=== PATIENT | male | born 1975 | race Caucasian/White ===

== ENCOUNTER 2023-08-22 08:12 | Emergency (ER) | payer BC, SELFPAY ==
[2023-08-22 08:20] VITALS: BP 129/83
[2023-08-22 08:26] VITALS: BMI 23.0
[2023-08-22 08:52] LABS: % Basophils 0.7 % (0-2); % Eosinophils 1.7 % (0-6); % Immature Granulocytes 0.2 % (0-0.5); % Lymphocytes 33.3 % (20.5-51.1); % Monocytes 5.5 % (1.7-9.3); % Neutrophils 58.6 % (42.2-75.2); Absolute Eosinophils 0.1 10^3/uL (0-0.7); Absolute Lymphocytes 1.9 10^3/uL (1.2-3.4); Absolute Monocytes 0.3 10^3/uL (0.1-0.6); Absolute Neutrophils 3.4 10^3/uL (1.4-6.5); Hematocrit 47.3 % (39.0-52.0); Hemoglobin 16.6 g/dL (13.0-18.0); Mean Corp Hgb Conc. 35.1 g/dL (33.0-37.0); Mean Corpuscular Volume 85.5 fL (80.0-94.0); Mean Platelet Volume 10.7 fL (7.4-10.4); Nucleated Red Blood Cells % 0 % (-); Platelet Count 205 10^3/uL (130-400); Red Blood Cell Count 5.53 10^6/uL (4.70-6.10); White Blood Cell Count 5.8 10^3/uL (4.8-10.8)
--- NOTE | 2023-08-22 08:59 | ED.GENMED ---
History of Present Illness
General
Chief Complaint: Heart Rate Problem
Source: patient
Exam Limitations: none
Time Seen by Provider: 08/22/23 08:40
Nursing documentation reviewed up to this point in time: agreed with
Travel History
Have you had any contact with someone who has COVID-19?: No
Do you have any symptoms of coronavirus? Fever > 100 degrees, chills, cough, shortness of breath, sore throat, loss of taste or smell, muscle aches, or headache?: No
History of Present Illness
History of Present Illness:
48-year-old male with no reported chronic medical issues who presents to the emergency room with his for evaluation of palpitations. Patient reports onset of symptoms this morning after getting out of bed around 5:15 AM�he says he initially
felt racing heart that lasted for about an hour but then seemed to improve a bit. He says when he was eating breakfast he felt symptoms returned and he checked his heart rate using his 's Apple Watch that was irregular which prompted him to
come to the emergency room. He does not have any chest pain. Denies any dizziness or lightheadedness. Denies any shortness of breath. He says he has not had similar symptoms in the past although he has had intermittent brief palpitations or
episodes of fatigue over the past few weeks. He does have a family history of A-fib in multiple family members. He has never seen a water softener servicer.
Past History
Past History
ED Past Medical History: None
ED Past Surgical History: Orthopedic
Social History
Tobacco: Non-smoker
Review of Systems
Review of Systems
All Other Systems: ROS reviewed and negative except as documented in HPI and ROS
Constitutional: Denies fever, fatigue or chills
Respiratory: Denies cough or trouble breathing
Cardiac: Reports palpitations; Denies chest pain, diaphoresis or syncope
ABD/GI: Denies abdominal pain, nausea, vomiting or diarrhea
: Denies flank pain
Musculoskeletal: Denies neck pain or back pain
Neurological: Denies headache, weakness or numbness
Phy Exam
Physical Exam
Physical Exam:
General: Awake, alert, oriented x3; no acute distress
Head: Normocephalic, atraumatic
Eyes: Conjunctiva normal
Throat: Airway intact, handling secretions
Neck: Trachea midline, supple without meningismus
Lungs: Clear to auscultation bilaterally, no wheezing, rales, rhonchi
Heart: Tachycardia with irregularly irregular rhythm, no murmurs, gallops, or rubs
Abd: Soft, non distended, nontender
Neuro: Cranial nerves grossly intact, speech fluid
Skin: no rash
Extremities: No edema in extremities, equal pulses in all extremities
Scores
[id number] Score for Afib Stroke Risk
Age in Years (65=0, 65-74=1, >/=75=2): <65
Sex (Female=+1): Male
Congestive Heart Failure History (Yes=+1): No
Hypertension History (Yes=+1): No
Stroke/TIA/Thromboembolism History (Yes=+2): No
Vascular Disease History (Yes=+1): No
Diabetes Mellitus (Yes=+1): No
Score: 0
Anticoagulation Recommendations: Anticoagulation not indicated (as validated in nonvalvular afib). Consider anticoagulation irrespective of score in patients with HCM
Heart Failure Risk
Heart Failure Risk Score: Not Applicable
Heart Score for Chest Pain Patients
STEMI patient?: Not applicable
Withdrawal Assessment of Alcohol
Withdrawal Assessment Completed?: Not applicable
Course
Orders/Labs/Results
Orders:
Orders
08/22/23 08:13
EKG [Electrocardiogram (*1)] Urgent
Reason for Study: Tachycardia
EKG- Treatment ONCE
08/22/23 08:37
Complete Blood Count/With Diff Urgent
Comprehensive Metabolic Panel Urgent
08/22/23 08:57
Diltiazem 125 mg/125 ml Nss [Cardizem] 125 mg in 125 ml IV NOW
Initial dose in mg/hr, then titrate:: 5
Titrate to keep:: Heart rate 80-100 bpm
Titrate by mg/hr:: 5 mg/hr
Frequency of titrations (minutes):: 15
Maximum dose in mg/hr:: 15
Diltiazem HCl [Cardizem] 10 mg IV NOW STA
08/22/23 08:58
0.9% Sodium Chloride 500 ml [Nss] 500 ml IV BOLUS
08/22/23 09:45
ECG [Electrocardiogram (*1)] Urgent
Reason for Study: Palpitations
08/22/23 09:46
EKG- Treatment ONCE
08/22/23 09:58
Aspirin Chewable [Low Strength Aspirin] 81 mg PO NOW STA
Metoprolol Xl [Toprol Xl] 12.5 mg PO NOW STA
Abnormal Lab Results
08/22/23
08:37
MPV 10.7 H fL
(7.4-10.4)
08/22/23 08:37
08/22/23 08:37
Vital Signs
Initial and Last Documented VS:
Initial Vital Signs
Temp Pulse Resp BP Pulse Ox
37.6 C 85 16 129/83 97
08/22/23 08:20 08/22/23 08:20 08/22/23 08:20 08/22/23 08:20 08/22/23 08:20
Last Documented Vital Signs
Temp Pulse Resp BP Pulse Ox
37.6 C 79 13 132/91 98
08/22/23 08:20 08/22/23 09:45 08/22/23 09:45 08/22/23 09:32 08/22/23 09:45
MDM/Problems Addressed
Differential Diagnosis Includes:
Atrial fibrillation, atrial flutter, SVT, PACs/PVCs
MDM/Problems Addressed:
48-year-old male who presents to the emergency room for evaluation of palpitations this morning and irregular heart rate. Arrived was tachycardic with heart rate in the 140s but otherwise normal vitals. Physical exam as above. EKG on arrival
shows A-fib with RVR. Plan to place an IV check labs including CBC and CMP. Patient would not be a good candidate for ED cardioversion as he is not on anticoagulation and unclear chronicity of his symptoms�while he has not had severe palpitations
for longer than this morning he has had occasional palpitations or episodes of fatigue for the past few weeks. Will instead rate control with IV diltiazem. Will reassess after the above.
Labs reviewed: CBC and CMP unremarkable. After IV diltiazem patient converted to normal sinus rhythm spontaneously. Repeat EKG confirms sinus rhythm. Patient feels well he has no complaints. Likely stable to be discharged home; case discussed
with cardiology for recommendations regarding initiation of medication--[id number] score 0; recommended starting on low-dose aspirin but no Eliquis. Recommended starting Toprol 12.5 mg p.o. daily. Patient can follow-up in the office. I spoke at
length with patient and about plan as above. They feel comfortable with this. Spoke about return precautions all questions answered.
*Pulse Oximetry
Patient hypoxic: no
*EKG
Interpreted by ED Provider?: Yes
Heart Rate: 144
Rate: tachycardiac
Rhythm: a-fib
[place]: normal axis
Interval: normal interval
QRS Pattern: normal QRS
Ischemia: non-specific ST changes
*Critical Care Note
Total Time (30-74mins, 75-104mins- exclusive of procedures): Not Applicable
Data Reviewed
Review of Other/Old Records Reveals: Records
Source: patient and spouse
Patient Management
Discussion with other providers: Substance Abuse Technician (Discussed with cardiology)
ED Attending Note
-
Portions of this chart may have been created with voice recognition software.� Occasional wrong word or��sound alike� substitutions may have occurred due to the inherent limitations of voice recognition software.
Discharge Plan
Departure
Patient Disposition: Home (Routine Discharge)
Date of Disposition: 08/22/23
Time of Disposition: 09:57
Patient with high blood pressure during this ER visit?: No
Discharge Problem:
Atrial fibrillation, new onset
Instructions: Atrial Fibrillation (DC)
Prescriptions:
New
metoprolol succinate [Toprol XL] 25 mg tablet extended release 24 hr
12.5 mg PO DAILY Qty: 30 0RF
aspirin 81 mg tablet,delayed release (DR/EC)
81 mg PO DAILY Qty: 30 0RF
No Action
prednisone 20 mg tablet
20 mg PO BID Qty: 14 0RF
cephalexin 500 mg capsule
500 mg PO BID 7 Days Qty: 14 0RF
Referrals:
Yasmani Patel MD [Family Provider] - Follow up in 5-7 days
Jonathon Black MD [Active] - Call in 1-3 days for appt (Cardiology)
Activity Restrictions/Additional Instructions:
Thank you for visiting the Emergency Department at [facility].
1. Please schedule a follow up appointment as directed. Call first thing tomorrow morning to make an appointment.
2. If indicated, please take your medications as instructed and indicated on discharge paperwork.
3. If any of your symptoms do not improve, or persist, or become more severe within 6-12 hours, please return to the emergency department for further care.
4. Please return to the emergency department if you develop a headache, neck pain/stiffness, fever greater than 100.4F, chest pain, shortness of breath, persistent nausea, vomiting, slurred speech, difficulty walking, numbness/tingling, weakness,
signs of infection or any other symptoms that are worrisome to you.
Please call [phone] if you have any questions.
Interventions
Interventions:
*Risk Screen - Suicide Last Done: 08/22/23 08:34
*General Assessment Last Done: 08/22/23 08:26
*Neglect/Abuse Screening Last Done: 08/22/23 08:34
ED- Cardiac Assessment Last Done: 08/22/23 08:35
ED- Pulmonary Assessment Last Done: 08/22/23 08:35
Discharge Date and Time
Print Language: LUXEMBOURGISH
[2023-08-22 09:10] LABS: ALT (SGPT) 23 U/L (0-50); AST (SGOT) 24 U/L (17-59); Albumin 4.9 g/dl (3.5-5.0); Alkaline Phosphatase 64 U/L (38-126); Blood Urea Nitrogen 19 mg/dl (9-20); Calcium 10.2 mg/dl (8.4-10.2); Carbon Dioxide 28 mmol/L (22-30); Chloride 105 mmol/L (98-107); Estimated Creatinine Clearance 116 ml/min; Glucose 81 mg/dl (70-99); Potassium 4.4 mmol/L (3.5-5.1); Sodium 143 mmol/L (135-145); Total Bilirubin 0.7 mg/dl (0.2-1.3); Total Protein 7.8 g/dl (6.3-8.2); eGFR > 60.00
[2023-08-22 09:12] VITALS: BP 147/104
[2023-08-22] MEDS: NSS 500 IV (09:13)
[2023-08-22] MEDS: CARDIZEM 10 MG IV (09:13)
[2023-08-22] MEDS: CARDIZEM 125 IV (09:16)
[2023-08-22 09:32] VITALS: BP 132/91
[2023-08-22 10:00] VITALS: BP 129/90
[2023-08-22] MEDS: LOW STRENGTH ASPIRIN 81 MG PO (10:12)
[2023-08-22] MEDS: TOPROL XL 12.5 MG PO (10:12)
== END 2023-08-22 10:39 | disposition home or self-care (01) ==
LOC: EMR 08:12
PROVIDERS: EMERGENCY PHYSICIAN Emergency Medicine; FAMILY PHYSICIAN Internal Medicine
DX: R00.2 Palpitations (principal); I48.91 Unspecified atrial fibrillation
CPT/HCPCS: 99283; 96374; 96376; 96361; 80053; 85025; 93005

== ENCOUNTER → 2023-09-05 08:53 | Outpatient (REF) | payer BC, SELFPAY | LOC: HWRCS 08:53 | PROVIDERS: ATTENDING PHYSICIAN Internal Medicine Cardiovascular Disease | DX: I48.0 Paroxysmal atrial fibrillation (principal) | CPT/HCPCS: 93306 ==

== ENCOUNTER → 2023-09-06 09:00 | Outpatient (REF) | payer BC, SELFPAY | LOC: DHSLP 09:00 | PROVIDERS: ATTENDING PHYSICIAN Internal Medicine Cardiovascular Disease; FAMILY PHYSICIAN Internal Medicine | DX: G47.30 Sleep apnea, unspecified (principal); R06.83 Snoring | CPT/HCPCS: 95800 ==

== ENCOUNTER → 2023-09-12 07:25 | Outpatient (REF) | payer BC, SELFPAY | LOC: RCS 07:25 | PROVIDERS: ATTENDING PHYSICIAN Internal Medicine Cardiovascular Disease; FAMILY PHYSICIAN Internal Medicine | DX: I48.0 Paroxysmal atrial fibrillation (principal) | CPT/HCPCS: 93017 ==

== ENCOUNTER 2023-11-17 05:53 | Day surgery (SDC) | payer BC, SELFPAY ==
[2023-10-31 13:14] VITALS: BMI 23.5
[2023-10-31 14:37] LABS: % Basophils 0.9 % (0-2); % Eosinophils 2.1 % (0-6); % Immature Granulocytes 0.2 % (0-0.5); % Lymphocytes 37.1 % (20.5-51.1); % Monocytes 6.5 % (1.7-9.3); % Neutrophils 53.2 % (42.2-75.2); Absolute Basophils 0.1 10^3/uL (0-0.2); Absolute Eosinophils 0.1 10^3/uL (0-0.7); Absolute Lymphocytes 2.1 10^3/uL (1.2-3.4); Absolute Monocytes 0.4 10^3/uL (0.1-0.6); Hematocrit 44.1 % (39.0-52.0); Hemoglobin 15.5 g/dL (13.0-18.0); Mean Corp Hgb Conc. 35.1 g/dL (33.0-37.0); Mean Corpuscular Hgb 30.6 pg (27.0-31.0); Mean Corpuscular Volume 87.2 fL (80.0-94.0); Mean Platelet Volume 11.5 fL (7.4-10.4); Nucleated Red Blood Cells % 0 % (-); Platelet Count 205 10^3/uL (130-400); Red Blood Cell Count 5.06 10^6/uL (4.70-6.10); Red Cell Dist. Width 12.3 % (11.5-14.5); White Blood Cell Count 5.7 10^3/uL (4.8-10.8)
[2023-10-31 14:43] LABS: INR 1.15; PT 14.8 Sec (11.4-14.6)
[2023-10-31 14:50] LABS: ALT (SGPT) 20 U/L (0-50); AST (SGOT) 24 U/L (17-59); Albumin 5.1 g/dl (3.5-5.0); Alkaline Phosphatase 68 U/L (38-126); Blood Urea Nitrogen 21 mg/dl (9-20); Carbon Dioxide 25 mmol/L (22-30); Chloride 103 mmol/L (98-107); Estimated Creatinine Clearance 100 ml/min; Glucose 90 mg/dl (70-99); Magnesium 2.1 mg/dl (1.6-2.3); Potassium 4.9 mmol/L (3.5-5.1); Sodium 140 mmol/L (135-145); Total Bilirubin 1.2 mg/dl (0.2-1.3); Total Protein 7.7 g/dl (6.3-8.2); eGFR > 60.00
[2023-11-17] VITALS (11 sets, daily range): BP systolic 109–131; BP diastolic 70–87; BMI 22.5
--- NOTE | 2023-11-17 07:52 | ITS.CL.ABL ---
Boiling Off Winder - Ablation
Ablation
Procedure Report:
Primary Customer Agent: Saturnino Figueroa MD
Procedure Date: 11/17/2023
Patient History:
Patient is a pleasant 48-year-old male with past medical history significant for mixed hyperlipidemia, symptomatic paroxysmal atrial fibrillation.
See H&P for complete details.
Indication:
Symptomatic paroxysmal atrial fibrillation
Arrhythmia Specific History:
Prior Medical Therapies for Rate and Rhythm Control:
X Beta-damaris
[ ] Calcium channel-damaris
[ ] Amiodarone
[ ] Dronederone
[ ] Sotalol
X Flecainide
[ ] Dofetilide
[ ] Options limited by bradycardia
[ ] Options limited by comorbid renal disease
Prior Procedural Therapies for AF/AFL:
[ ] Cardioversion
[ ] Pulmonary Vein Isolation
[ ] Posterior Wall Isolation
[ ] Additional lines (Specify)
[ ] Surgical Morgan-MAZE or PVI (Specify)
Procedure Performed:
X AF ablation procedure (97149) -- includes LA/CS pacing, trans-septal, 3D mapping, + ICE
[ ] +IV drug (27654)
[ ] +Other Arrhythmia (25558)
[ ] +Other AF Line/ablation (33802)
Risks and expected recovery has been explained in detail. Alternative options have been explored, and in a shared-decision making fashion we have decided that this was the most appropriate procedure.
Method
NPO status confirmed. Grounding pad applied. Defibrillator pads applied. Continuous surface ECG, pulse oximetry, and blood pressure were monitored. Procedure was performed under general anesthesia, with anesthesia services.
Both groins were clipped, prepped with Chloraprep, and draped in sterile fashion. Time out was called. Local anesthesia administered with bupivacaine. The right and left femoral veins were accessed for catheter placement, using ultrasound guidance,
micro-puncture needle/wire, and modified seldinger technique. 3 sheaths were placed. The following catheters were used:
[ ] Tacticath SE (D/F Curve) ablation catheter
X Viewflex 9Fr ICE catheter
X Inquiry decapolar 6Fr diagnostic catheter
[ ] CRD Hex 6Fr
[ ] Arctic Front Advance Cryoballoon ([ ]28mm[ ]23mm)
[ ] Achieve Advance mapping catheter ([ ]15mm[ ]20mm)
X FlexCath Contour 10 Fr with PulseSelect PFA Catheter
X Advisor HD Grid Mapping Catheter, SE
[ ] Acuson AcuNav 8 Fr ICE catheter
[ ]Other: [ ]
Intracardiac ultrasound (ICE) was carefully advanced into the right atrium to guide sheath placement over a J-wire, catheter placement, guide trans-septal puncture, identify potential complications, identify anatomic structures and ensure proper
contact between ablation catheter and tissue.
Heparin was given prior to trans-septal puncture. Heparin was given to achieve and maintain a target ACT of 300-400 seconds throughout the procedure.
Trans-septal access was performed under ICE guidance. The trans-septal puncture was performed with a SafeSept wire through a Brockenbrough needle assembly through the steerable sheath. The wire was visualized as it entered the LSPV and system
advanced under ICE guidance and fluoroscopy into the LA. The Brockenbrough needle assembly, SafeSept wire and sheath dilator were removed under negative pressure. LA pressure was measured and recorded.
ICE and 3D mapping was performed to identify relevant cardiac structures. A careful 3D map was created to assess for regions of low-voltage and abnormal electrogram signals using HD grid mapping catheter and PulseSelect catheter. Additional mapping
was performed as outlined below.
Prior to ablation, glycopyrrolate was provided. PulseSelect catheter was advanced over J-wire to the ostium of each vein. Pulmonary vein isolation was performed with ostial and antral lesions in a circumferential manner. Contact was visualized via
EAM, ICE, fluoroscopy, and EGM signals. Following completion of ablation lesions, a post-ablation voltage/activation map was performed in sinus rhythm. Entrance and exit block were confirmed for each vein.
Catheter and sheath were removed from the left atrium and post-ablation intracardiac echo evaluation was consistent with pre-ablation with no changes and no pericardial effusion and there is no left atrial thrombus or left ventricle thrombus seen.
Electrophysiology study was performed. Hemostasis was obtained with figure of 8 stitch for each groin and with manual pressure. Protamine was used for reversal.
Estimated Blood Loss
5 mL
Complications
None
Fluoroscopy: 4.4minutes; 8.93 mGy; DAP 1.06
Baseline Intervals:
Rhythm: SR
SC: 109 ms
QRS: 119 ms
QT: 396 ms
QTc: 409 ms
A-A: 939 ms
R-R: 939 ms
Post-Procedure Intervals:
SC: 113 ms
QRS: 103 ms
QT: 401 ms
QTc: 458 ms
A-A: 766 ms
R-R: 766 ms
AVWB: 300 ms
AERP: 600/210 ms
Recommendations
- Bedrest with straight-leg precautions as ordered
- Anticipate same day discharge if patient meeting clinical metrics
- Resume home medications as indicated
- Ok to resume anticoagulation tonight if patient and groin sites stable
- PPI daily for 30 days
- Plan for follow-up in office as scheduled
Arnie Phillip DO
Clinical Cardiac Electrotyper Helper
cc: Saturnino Figueroa MD; Amanda Gruber MD
[2023-11-17 08:46] LABS: ACT-LR - POC 282 Seconds (116-155)
[2023-11-17 09:14] LABS: ACT-LR - POC 340 Seconds (116-155)
[2023-11-17 09:44] LABS: ACT-LR - POC 369 Seconds (116-155)
[2023-11-17 09:47] LABS: ACT-LR - POC 141 Seconds (116-155)
--- NOTE | 2023-11-17 14:36 | W.PN.UPDATE ---
Update Note
Progress Note Update
Pt seen post PVI. RFV site without ht/bleeding, non tender. OOB ambulating. Post EKG NSR 70s w/occas. PVC, no acute changes. Resume eliquis today and will continue other meds as before, including flecainide and metoprolol. 30 day rx for protonix
post ablation sent to pharmacy. Followup at [facility] arranged. Home later today if groin site/tele remain stable.
[2023-11-17 15:36] LABS: ACT-LR - POC > 397 Seconds (116-155)
== END 2023-11-17 15:30 | disposition home or self-care (01) ==
LOC: CATH 05:53
PROVIDERS: ATTENDING PHYSICIAN Internal Medicine Cardiovascular Disease; FAMILY PHYSICIAN Internal Medicine; OTHER PHYSICIAN Internal Medicine Cardiovascular Disease
DX: I48.0 Paroxysmal atrial fibrillation (principal); E78.2 Mixed hyperlipidemia; Z79.01 Long term (current) use of anticoagulants
CPT/HCPCS: C1732; C1894; C1733; C1769; C1766; 36415; 75572; 76937; 80053; 83735; 85025; 85347; 85610; 86850; 86900; 86901; 93005; 93656; Q9967